=== PATIENT | female | born 1960 | race Asian ===

== ENCOUNTER 2017-03-18 15:21 | Inpatient (IN) | payer BC ==
[~2017-03-18] VITALS: Ht 167.6 cm; Wt 73.9 kg
[~2017-03-18 15:21] MED LIST: AZIT500T5 PO; CEFD300C37 PO; INSU100C SQ-INSULIN; INSU100V8 SQ; METF500T4 PO; METH750T87 PO; NICO-485 TD; TRAM50TA2 PO
[2017-03-18] MEDS ORDERED: methylPREDNISolone SOD SUCC 125 MG/2 ML ONE (15:27)
[2017-03-18] MEDS ORDERED: SODIUM CHLORIDE FLUSH 10ML SYR IVF ONE (15:30)
[2017-03-18] MEDS ORDERED: methylPREDNISolone SOD SUCC 125 MG/2 ML IVP ONE (15:30)
[2017-03-18] MEDS ORDERED: ALBUTEROL/IPRATROPIUM 2.5MG/0.5MG, 3 ML ONE (15:50)
[2017-03-18 15:56] LABS: HEMATOCRIT 47.1 % (34.6-47.8); HEMOGLOBIN 15.6 g/dL (11.7-16.4); WHITE BLOOD COUNT 3.3 x10^3/uL (3.4-10)
[2017-03-18] MEDS ORDERED: ALBUTEROL SULFATE 2.5MG/0.5ML ONE (15:59)
[2017-03-18 16:05] LABS: BLOOD UREA NITROGEN 30 mg/dL (7-18)
[2017-03-18] MEDS: ALBUTEROL/IPRATROPIUM 2.5MG/0.5MG, 3 ML NPPB SCH ×3 (16:05→20:00)
[2017-03-18 16:17] LABS: IS PT STATUS REG ER OR PRE ER? YES
[2017-03-18] MEDS ORDERED: ALBUTEROL 0.5%, 20ML NPPBCONT ONE (16:30)
[2017-03-18] MEDS ORDERED: LORazepam 2 MG/ML, 1ML ONE (16:30)
[2017-03-18] MEDS ORDERED: IPRATROPIUM 0.5 MG/2.5 ML INHA NPPB ONE (16:30)
[2017-03-18] MEDS ORDERED: LORazepam 2 MG/ML, 1ML IVPush ONE (16:30)
[2017-03-18] MEDS ORDERED: MAGNESIUM SULFATE PMX 2GM/50ML 50 ML IV ONE (17:00)
[2017-03-18] MEDS ORDERED: morphine SULFATE 10 MG/ML, 1ML IVPush PRN ×2 (18:00→19:00)
[2017-03-18] MEDS ORDERED: LORazepam 0.5MG TABLET PO PRN ×2 (18:00→19:00)
[2017-03-18] MEDS ORDERED: LABETALOL 5MG/ML, 20ML IVPush PRN ×2 (18:00→19:00)
[2017-03-18] MEDS ORDERED: POLYETHYLENE GLYCOL 17 GM PACKET PO PRN (18:00)
[2017-03-18] MEDS ORDERED: GUAIFENESIN/DM 200-20MG, 10ML UDC PO PRN ×2 (18:00→19:00)
[2017-03-18] MEDS ORDERED: HYDROcodone/APAP 5/325 TABLET PO PRN ×2 (18:00→19:00)
[2017-03-18] MEDS ORDERED: ONDANSETRON ODT 4 MG PO PRN ×2 (18:00→19:00)
[2017-03-18] MEDS ORDERED: ONDANSETRON 2MG/ML, 2ML IVPush PRN ×2 (18:00→19:00)
[2017-03-18 18:10] VITALS: BP 137/79
[2017-03-18] MEDS ORDERED: METHOCARBAMOL 750 MG TABLET PO PRN ×2 (18:30→19:00)
[2017-03-18 19:30] LABS: ASPARTATE AMINO TRANSFERASE 20 U/L (15-37); BLOOD UREA NITROGEN 28 mg/dL (7-18)
[2017-03-18 19:39] VITALS: BP 136/71
[2017-03-18 19:58] LABS: HEMATOCRIT 47.2 % (34.6-47.8); HEMOGLOBIN 15.6 g/dL (11.7-16.4); WHITE BLOOD COUNT 6.5 x10^3/uL (3.4-10)
[2017-03-18] MEDS: ENOXAPARIN 40 MG/0.4 ML SQ SCH (21:00)
[2017-03-18] MEDS ORDERED: INSULIN DETEMIR 100 UNITS/ML, PEN SQ-INSULIN SCH (21:00)
[2017-03-18] MEDS: DOXYCYCLINE 100MG TABLET PO SCH (21:00)
[2017-03-18] MEDS: methylPREDNISolone SOD SUCC 125 MG/2 ML IVPush SCH (21:00)
[2017-03-18] MEDS: GUAIFENESIN 200 MG TABLET PO SCH (21:00)
[2017-03-18 23:39] LABS: IS PT STATUS REG ER OR PRE ER? NO
[2017-03-19 02:00] VITALS: BP 150/81
[2017-03-19] MEDS: methylPREDNISolone SOD SUCC 125 MG/2 ML IVPush SCH ×2 (03:29→10:11)
[2017-03-19 05:26] LABS: IS PT STATUS REG ER OR PRE ER? NO
[2017-03-19] MEDS: GUAIFENESIN 200 MG TABLET PO SCH ×4 (06:00→20:17)
[2017-03-19 06:50] VITALS: BP 131/73
[2017-03-19] MEDS: ALBUTEROL/IPRATROPIUM 2.5MG/0.5MG, 3 ML NPPB SCH ×5 (07:58→22:00)
[2017-03-19] MEDS: FLUOXETINE 20 MG CAPSULE PO SCH (10:10)
[2017-03-19] MEDS: SENNA/DOCUSATE TABLET PO SCH (10:11)
[2017-03-19] MEDS: DOXYCYCLINE 100MG TABLET PO SCH ×2 (10:11→20:17)
[2017-03-19] MEDS: INSULIN DETEMIR 100 UNITS/ML, PEN SQ-INSULIN SCH ×2 (10:57→20:18)
[2017-03-19] MEDS: INSULIN ASPART 100 UNITS/ML, PEN SQ-INSULIN SCH ×3 (11:52→20:18)
[2017-03-19 14:42] VITALS: BP 125/64
[2017-03-19 19:14] VITALS: BP 106/61
[2017-03-19] MEDS ORDERED: ONDANSETRON ODT 4 MG PO PRN (19:30)
[2017-03-19] MEDS ORDERED: LABETALOL 5MG/ML, 20ML IVPush PRN (19:30)
[2017-03-19] MEDS ORDERED: ONDANSETRON 2MG/ML, 2ML IVPush PRN (19:30)
[2017-03-19] MEDS ORDERED: POLYETHYLENE GLYCOL 17 GM PACKET PO PRN (19:30)
[2017-03-19] MEDS ORDERED: METHOCARBAMOL 750 MG TABLET PO PRN (19:30)
[2017-03-19] MEDS ORDERED: GUAIFENESIN/DM 200-20MG, 10ML UDC PO PRN (19:30)
[2017-03-19] MEDS: ENOXAPARIN 40 MG/0.4 ML SQ SCH (20:17)
[2017-03-20 00:35] VITALS: BP 133/69
[2017-03-20] MEDS: ALBUTEROL/IPRATROPIUM 2.5MG/0.5MG, 3 ML NPPB SCH ×6 (03:51→22:00)
[2017-03-20 05:25] LABS: HEMATOCRIT 43.3 % (34.6-47.8); HEMOGLOBIN 14.1 g/dL (11.7-16.4)
[2017-03-20 05:33] LABS: BLOOD UREA NITROGEN 36 mg/dL (7-18)
[2017-03-20] MEDS: GUAIFENESIN 200 MG TABLET PO SCH ×4 (06:00→20:53)
[2017-03-20] MEDS: INSULIN ASPART 100 UNITS/ML, PEN SQ-INSULIN SCH ×4 (07:00→21:07)
[2017-03-20 07:45] VITALS: BP 130/71
[2017-03-20] MEDS: SENNA/DOCUSATE TABLET PO SCH (09:00)
[2017-03-20] MEDS ORDERED: INSULIN DETEMIR 100 UNITS/ML, PEN SQ-INSULIN SCH (09:00)
[2017-03-20] MEDS ORDERED: REGADENOSON 0.4 MG/5 ML SYRINGE ONE (09:15)
[2017-03-20] MEDS: DOXYCYCLINE 100MG TABLET PO SCH ×2 (12:33→20:53)
[2017-03-20] MEDS: FLUTICASONE/VILANTEROL 100-25MCG/INH INH SCH (14:27)
[2017-03-20 15:01] VITALS: BP 129/80
[2017-03-20] MEDS: INSULIN DETEMIR 100 UNITS/ML, PEN SQ-INSULIN SCH (17:28)
[2017-03-20] MEDS: ENOXAPARIN 40 MG/0.4 ML SQ SCH (20:53)
[2017-03-20] MEDS: FLUOXETINE 20 MG CAPSULE PO SCH (20:53)
[2017-03-20 20:59] VITALS: BP 128/74
[2017-03-21 02:30] VITALS: BP 125/78
[2017-03-21] MEDS: GUAIFENESIN 200 MG TABLET PO SCH ×4 (05:00→20:17)
[2017-03-21 06:07] LABS: HEMATOCRIT 44.3 % (34.6-47.8); HEMOGLOBIN 14.8 g/dL (11.7-16.4)
[2017-03-21 06:13] LABS: BLOOD UREA NITROGEN 33 mg/dL (7-18)
[2017-03-21] MEDS: ALBUTEROL/IPRATROPIUM 2.5MG/0.5MG, 3 ML NPPB SCH ×5 (06:40→22:00)
[2017-03-21 06:45] VITALS: BP 149/76
[2017-03-21] MEDS: INSULIN ASPART 100 UNITS/ML, PEN SQ-INSULIN SCH ×4 (07:00→20:23)
[2017-03-21] MEDS: FLUOXETINE 20 MG CAPSULE PO SCH (09:00)
[2017-03-21] MEDS: FLUTICASONE/VILANTEROL 100-25MCG/INH INH SCH (09:08)
[2017-03-21] MEDS: DOXYCYCLINE 100MG TABLET PO SCH ×2 (09:09→20:17)
[2017-03-21] MEDS: SENNA/DOCUSATE TABLET PO SCH (09:09)
[2017-03-21] MEDS: INSULIN DETEMIR 100 UNITS/ML, PEN SQ-INSULIN SCH ×2 (09:10→16:45)
[2017-03-21 12:56] VITALS: BP 122/76
[2017-03-21] MEDS ORDERED: FLUO20CA8 PO (17:33)
[2017-03-21] MEDS ORDERED: PRED20TA PO ×2 (17:33→17:34)
[2017-03-21] MEDS ORDERED: IPRA3AMP NPPB (17:33)
[2017-03-21] MEDS ORDERED: GUAI200T3 PO (17:33)
[2017-03-21] MEDS ORDERED: DOXY100T PO (17:33)
[2017-03-21 20:00] VITALS: BP 130/74
[2017-03-21] MEDS: ENOXAPARIN 40 MG/0.4 ML SQ SCH (20:17)
[2017-03-22 01:47] VITALS: BP 130/71
[2017-03-22] MEDS: GUAIFENESIN 200 MG TABLET PO SCH ×2 (05:17→11:39)
[2017-03-22] MEDS: INSULIN ASPART 100 UNITS/ML, PEN SQ-INSULIN SCH ×2 (07:00→11:39)
[2017-03-22] MEDS: ALBUTEROL/IPRATROPIUM 2.5MG/0.5MG, 3 ML NPPB SCH (07:55)
[2017-03-22 07:58] VITALS: BP 126/73
[2017-03-22] MEDS: FLUTICASONE/VILANTEROL 100-25MCG/INH INH SCH (08:43)
[2017-03-22] MEDS: INSULIN DETEMIR 100 UNITS/ML, PEN SQ-INSULIN SCH (08:44)
[2017-03-22] MEDS: FLUOXETINE 20 MG CAPSULE PO SCH (08:44)
[2017-03-22] MEDS: DOXYCYCLINE 100MG TABLET PO SCH (08:44)
[2017-03-22] MEDS: SENNA/DOCUSATE TABLET PO SCH (08:46)
[2017-03-22] MEDS ORDERED: INSU100I28 SQ-INSULIN ×2 (09:02)
== END 2017-03-22 12:55 | disposition home or self-care (01) | DRG 189 ==
LOC: ED 15:50 → EDIP 16:51 → 4EST 17:49
PROVIDERS: ADMIT Internal Medicine; ATTEND Internal Medicine
DX: J96.01 Acute respiratory failure with hypoxia (principal); N17.0 Acute kidney failure with tubular necrosis; J45.52 Severe persistent asthma with status asthmaticus; E11.65 Type 2 diabetes mellitus with hyperglycemia; J44.1 Chronic obstructive pulmonary disease with (acute) exacerbation; K21.9 Gastro-esophageal reflux disease without esophagitis; E78.1 Pure hyperglyceridemia; E78.5 Hyperlipidemia, unspecified; F17.210 Nicotine dependence, cigarettes, uncomplicated; F32.9 Major depressive disorder, single episode, unspecified; F41.9 Anxiety disorder, unspecified; G47.33 Obstructive sleep apnea (adult) (pediatric); I10 Essential (primary) hypertension; I25.10 Atherosclerotic heart disease of native coronary artery without angina pectoris; Z79.4 Long term (current) use of insulin; Z79.899 Other long term (current) drug therapy; Z80.6 Family history of leukemia; Z83.3 Family history of diabetes mellitus
CPT/HCPCS: 36415; 71010; 78452; 80048; 80053; 80061; 82040; 82962; 83036; 83735; 83880; 84484; 85025; 85379; 85610; 87070; 87205; 93005; 93017; 93306; 94640; 94644; 96374; 96375; J1650; J1815; J2785; J7620; J7644; A9502; C9898; J2060; J2930; J3475; J7512